=== PATIENT | female | born 1970 | race Caucasian/White ===

== ENCOUNTER 2023-08-05 06:17 | Day surgery (SDC) | payer OTHER ==
[2023-08-01 09:31] VITALS: BMI 38.6
[2023-08-05] MEDS ORDERED: ceFAZolin SODIUM 1 GM VIAL ONE ×3 (06:51→07:49)
[2023-08-05] MEDS ORDERED: THROMBIN (BOVINE) 5,000 UNIT VIAL TP ONE (06:51)
[2023-08-05] MEDS ORDERED: ONDANSETRON 4 MG/2 ML VIAL IVPUSH PRN ×2 (07:25→09:33)
[2023-08-05] MEDS ORDERED: FENTANYL CITRATE/PF 50 MCG/ML VIAL ONE (07:27)
[2023-08-05] MEDS ORDERED: MIDAZOLAM HCL 2 MG/2 ML SINGLE DOSE VIAL ONE ×2 (07:27→07:42)
[2023-08-05] MEDS ORDERED: BUPIVACAINE LIPOSOME/PF (EXPAREL) 266 MG/20 ML VIAL ONE (07:27)
[2023-08-05] MEDS ORDERED: BUPIVACAINE HCL/PF 2.5 MG/ML - 30 ML VIAL IJ ONE (07:27)
[2023-08-05] MEDS ORDERED: PROPOFOL 20 ML ONE ×2 (07:42→07:58)
[2023-08-05] MEDS ORDERED: SUCCINYLCHOLINE CHLORIDE 200 MG/10 ML SYRINGE ONE (07:42)
[2023-08-05] MEDS ORDERED: BUPIVICAINE 0.25%/MORPH PF/KETOROLAC - 51ML DISP.SYRINGE IA ONE (08:22)
[2023-08-05] MEDS: KETOROLAC TROMETHAMINE 30 MG/1 ML VIAL IM ONE (08:56)
[2023-08-05] MEDS: BUPIVACAINE HCL/PF 0.25% (2.5MG/ML) 10 ML VIAL IJ ONE (08:56)
[2023-08-05] MEDS: morphine SULFATE/PF 1 MG/2 ML (2cc Syringe - QUVA) IV ONE (08:56)
[2023-08-05] MEDS ORDERED: ePHEDrine SULFATE 50 MG/1 ML AMPULE ONE (09:08)
[2023-08-05] MEDS ORDERED: ACETAMINOPHEN INJECTION 100 ML IVPB ONE (09:31)
[2023-08-05] MEDS: ACETAMINOPHEN 1000 MG/100 ML BAG IVPB ONE (09:35)
[2023-08-05] MEDS ORDERED: PATIENT'S OWN MEDICATION (NON-FORMULARY) (Apremilast [Otezla] 30 MG Tablet) PO SCH (10:00)
[2023-08-05] MEDS ORDERED: KETOROLAC TROMETHAMINE 30 MG/1 ML VIAL IVPUSH PRN (12:22)
[2023-08-05] MEDS: TRANEXAMIC ACID 1000 MG/10 ML VIAL IVPUSH ONE (17:07)
[2023-08-05] MEDS: LACTATED RINGERS SOLUTION 1,000 ML IV SCH (17:07)
[2023-08-05] MEDS: BUPIVICAINE 0.25%/MORPH PF/KETOROLAC - 51ML DISP.SYRINGE IA ONE (17:07)
[2023-08-05] MEDS: CEFAZOLIN 2 GM in DEXTROSE 5%-WATER - 50 ML IVPB ONE (17:07)
[2023-08-05] MEDS: LEVOTHYROXINE NA 100 MCG TABLET (FP) PO SCH (17:08)
[2023-08-05] MEDS: MULTIVITAMINS (DAILY MVI) TABLET (FP) PO SCH (17:08)
[2023-08-05] MEDS: PANTOPRAZOLE 40 MG TABLET PO SCH (17:08)
[2023-08-05] MEDS: SENNOSIDES/DOCUSATE COMBO (SENNA PLUS) TABLET (UD) PO SCH (17:08)
[2023-08-05] MEDS: ESCITALOPRAM OXALATE 10 MG TABLET PO SCH (17:08)
[2023-08-05] MEDS: CEFAZOLIN 2 GM in DEXTROSE 5%-WATER 100 ML IVPB SCH (17:27)
[2023-08-05] MEDS: oxyCODONE HCL 5 MG TABLET PO PRN ×2 (17:29→21:41)
[2023-08-05] MEDS: TAMOXIFEN CITRATE 10 MG TABLET PO SCH (20:34)
[2023-08-05] MEDS: ACETAMINOPHEN 500 MG TABLET (FP) PO PRN (21:41)
[2023-08-06] MEDS: ALPRAZolam 1 MG TABLET PO PRN (08:10)
[2023-08-06] MEDS: ASPIRIN 325 MG TABLET PO SCH (09:45)
[2023-08-06 09:55] VITALS: RESP 18
[2023-08-06 14:09] VITALS: BP 114/69; PULSE 89; TEMP 98.4
== END 2023-08-06 14:55 | disposition home health service (06) ==
LOC: FASUSAT 06:17 → FM/S 12:31 → FASUSAT 08-06 14:55
PROVIDERS: ATTEND Orthopaedic Surgery
PROC: 8E0Y0CZ Robotic Assisted Procedure of Lower Extremity, Open Approach (ICD-10-PCS; 2023-08-05)
PROC: 0SRC0N9 Replacement of Right Knee Joint with Patellofemoral Synthetic Substitute, Cemented, Open Approach (ICD-10-PCS; principal; 2023-08-05 07:59)
DX: M17.11 Unilateral primary osteoarthritis, right knee (principal)
CPT/HCPCS: 20985; 27446; C1776; S2900; 73560-TC-RT-FY; 94760; 97010-GP; 97116-GP; 97162-GP; C1713; C1889; J0131

== ENCOUNTER 2023-09-21 06:06 | Day surgery (SDC) | payer OTHER ==
[2023-09-21] MEDS ORDERED: VANCOMYCIN 1,000 MG VIAL (RESTRICTED TO ID ONLY) ONE (07:06)
[2023-09-21] MEDS ORDERED: ceFAZolin SODIUM 1 GM VIAL ONE ×2 (07:06→08:24)
[2023-09-21 07:19] VITALS: BMI 40.8
[2023-09-21] MEDS ORDERED: THROMBIN (BOVINE) 5,000 UNIT VIAL TP ONE (07:30)
[2023-09-21] MEDS ORDERED: MIDAZOLAM HCL 2 MG/2 ML SINGLE DOSE VIAL ONE ×3 (07:31→08:53)
[2023-09-21] MEDS ORDERED: PROPOFOL 20 ML ONE ×2 (07:32→08:56)
[2023-09-21] MEDS ORDERED: BUPIVACAINE HCL/PF 2.5 MG/ML - 30 ML VIAL IJ ONE (07:38)
[2023-09-21] MEDS ORDERED: BUPIVACAINE HCL/PF 0.5% (5MG/ML) 10 ML VIAL ONE (07:38)
[2023-09-21] MEDS ORDERED: ONDANSETRON 4 MG/2 ML VIAL IVPUSH PRN ×2 (07:55→10:03)
[2023-09-21] MEDS ORDERED: ALPRAZolam 1 MG TABLET PO PRN (07:56)
[2023-09-21] MEDS: BUPIVICAINE 0.25%/MORPH PF/KETOROLAC - 51ML DISP.SYRINGE IA ONE ×3 (08:44→13:32)
[2023-09-21] MEDS ORDERED: ACETAMINOPHEN INJECTION 100 ML IVPB ONE (08:54)
[2023-09-21] MEDS ORDERED: PATIENT'S OWN MEDICATION (NON-FORMULARY) (Apremilast [Otezla] 30 MG Tablet) PO SCH (10:00)
[2023-09-21] MEDS ORDERED: oxyCODONE HCL 5 MG TABLET PO PRN (10:04)
[2023-09-21] MEDS ORDERED: LACTATED RINGERS SOLUTION 1,000 ML IV SCH (10:15)
[2023-09-21] MEDS: LACTATED RINGERS SOLUTION 1,000 ML IV SCH (12:00)
[2023-09-21] MEDS: SENNOSIDES/DOCUSATE COMBO (SENNA PLUS) TABLET (UD) PO SCH (13:32)
[2023-09-21] MEDS: TRANEXAMIC ACID 1000 MG/10 ML VIAL IVPUSH ONE (13:32)
[2023-09-21] MEDS: ESCITALOPRAM OXALATE 10 MG TABLET PO SCH (13:32)
[2023-09-21] MEDS: CEFAZOLIN 2 GM in DEXTROSE 5%-WATER - 50 ML IVPB ONE (13:32)
[2023-09-21] MEDS: PANTOPRAZOLE 40 MG TABLET PO SCH (13:33)
[2023-09-21] MEDS: MULTIVITAMINS (DAILY MVI) TABLET (FP) PO SCH (13:35)
[2023-09-21] MEDS: oxyCODONE HCL 5 MG TABLET PO PRN (14:51)
[2023-09-21] MEDS: CEFAZOLIN SODIUM 2 GM in DEXTROSE 5%-WATER 100 ML IVPB SCH (16:49)
[2023-09-21] MEDS: ACETAMINOPHEN 500 MG TABLET (FP) PO SCH (18:12)
[2023-09-22] MEDS: TAMOXIFEN CITRATE 10 MG TABLET PO SCH (06:26)
[2023-09-22] MEDS: LEVOTHYROXINE NA 100 MCG TABLET (FP) PO SCH (06:30)
[2023-09-22 08:52] VITALS: BP 120/60; PULSE 98; RESP 16; TEMP 98.6
[2023-09-22] MEDS: ASPIRIN 325 MG TABLET PO SCH (08:58)
== END 2023-09-22 11:00 | disposition home health service (06) ==
LOC: FASUSAT 06:06 → FM/S 12:06 → FASUSAT 09-22 11:00
PROVIDERS: ATTEND Orthopaedic Surgery
PROC: 8E0Y0CZ Robotic Assisted Procedure of Lower Extremity, Open Approach (ICD-10-PCS; 2023-09-21)
PROC: 0SRD0M9 Replacement of Left Knee Joint with Lateral Unicondylar Synthetic Substitute, Cemented, Open Approach (ICD-10-PCS; principal; 2023-09-21 08:26)
DX: M17.12 Unilateral primary osteoarthritis, left knee (principal)
CPT/HCPCS: 20985; 27446; C1776; S2900; 73560-TC-LT-FY; 94760; 97010-GP; 97116-GP; 97162-GP; C1713; C1889; J0131